=== PATIENT | female | born 1950 | race Caucasian/White ===

== ENCOUNTER 2018-03-29 16:43 | Inpatient (IN) | payer SELFPAY ==
[~2018-03-29] VITALS: Ht 160 cm; Wt 68.9 kg
[2018-03-29] MEDS ORDERED: KETOROLAC 30MG/ML VIAL IV STA (19:28)
[2018-03-29] MEDS ORDERED: FAMOTIDINE 20MG/2ML VIAL IV STA (19:28)
[2018-03-29] MEDS ORDERED: ONDANSETRON HCL 4MG/2ML VIAL IV STA (19:28)
[2018-03-29] MEDS ORDERED: SODIUM CHLORIDE 0.9% 1,000 ML IV ONE (19:28)
[2018-03-29] MEDS ORDERED: MORPHINE SULFATE 4 MG/ML CPJ (NOT FOR IM USE) IV STA (19:28)
[2018-03-29] MEDS ORDERED: PIPERACILLIN/TAZ 3.375G PREMIX 50 ML IV ONE (19:30)
[2018-03-29] MEDS ORDERED: SODIUM CHLORIDE 0.9% 1000ML BAG (SEPSIS BOLUS) IV ONE (19:30)
[2018-03-29] MEDS ORDERED: METRONIDAZOLE 500 MG PREMIX 100 ML IV ONE (19:30)
[2018-03-29 21:22] LABS: BASOPHILS % 0.2 % (0.0-2.0); HEMATOCRIT. 35.4 % (36.0-48.0); MEAN CORPUSCULAR HEMOGLOBIN 28.3 pg (28.0-32.0); MEAN CORPUSCULAR VOLUME 83.4 fL (81.0-99.0); MEAN PLATELET VOLUME 9.3 fl (7.4-10.4); MONOCYTES % 3.2 % (2.0-8.0); NEUTROPHILS % 84.6 % (40.0-76.0); PLATELET 208 x1000/uL (130-400); RED BLOOD CELL COUNT 4.24 mill/uL (4.2-5.4)
[2018-03-29 21:26] LABS: CHLORIDE 102 mEq/L (98-107)
[2018-03-29 21:27] LABS: INR 0.9; PROTHROMBIN TIME 9.5 sec (9.1-11.1)
[2018-03-29 21:30] LABS: ETHANOL BLOOD < 10 mg/dL
[2018-03-29 21:36] LABS: CLARITY URINE CLEAR (CLEAR); COLOR URINE YELLOW (YELLOW); KETONES URINE NEGATIVE (NEGATIVE); LEUKOCYTE ESTERASE URINE 1+ (NEGATIVE); NITRITE URINE POSITIVE (NEGATIVE); OCCULT BLOOD URINE NEGATIVE (NEGATIVE); PROTEIN URINE NEGATIVE (NEGATIVE); SPECIFIC GRAVITY URINE 1.016 (1.005-1.030); UROBILINOGEN URINE 0.2 E.U./dL (0.2-1.0)
[2018-03-29 21:45] LABS: *AMPHETAMINES SCREEN URINE NEGATIVE (NEGATIVE); *BARBITURATES SCREEN URINE NEGATIVE (NEGATIVE)
[2018-03-29 21:46] LABS: *BENZODIAZEPINES SCREEN URINE NEGATIVE (NEGATIVE); *COCAINE SCREEN URINE NEGATIVE (NEGATIVE); CANNABINOID URINE SCREEN NEGATIVE (NEGATIVE); METHADONE URINE SCREEN NEGATIVE (NEGATIVE); OPIATES URINE SCREEN NEGATIVE (NEGATIVE); PHENCYCLIDINE URINE SCREEN NEGATIVE (NEGATIVE)
[2018-03-30] MEDS ORDERED: PIPERACILLIN/TAZ 3.375G PREMIX 50 ML IV SCH (01:41)
[2018-03-30] MEDS ORDERED: SODIUM CHLORIDE 0.9% 1,000 ML IV ONE (01:43)
[2018-03-30] MEDS ORDERED: GLIM4TAB2 MT (04:19)
[2018-03-30] MEDS ORDERED: ASPI-1158 MT (04:19)
[2018-03-30] MEDS ORDERED: HYDR12.54 MT (04:22)
[2018-03-30] MEDS ORDERED: GABA-531 PO (04:22)
[2018-03-30] MEDS ORDERED: LOSA100T14 MT (04:22)
[2018-03-30] MEDS ORDERED: NPH,100V SQ (04:22)
[2018-03-30] MEDS ORDERED: IBUP-2028 MT (04:22)
[2018-03-30] MEDS ORDERED: SIMV40TA5 MT (04:22)
[2018-03-30 04:26] VITALS: BP_SYST 109; BP_SYST 110; BP_DIAS 37; BP_DIAS 68
[2018-03-30 08:00] VITALS: BP 81/44
[2018-03-30] MEDS ORDERED: ONDANSETRON HCL 4MG/2ML VIAL IV PRN (09:15)
[2018-03-30] MEDS ORDERED: MORPHINE SULFATE 4 MG/ML CPJ (NOT FOR IM USE) IV PRN (09:15)
[2018-03-30] MEDS ORDERED: DEXTROSE 50% WATER 50ML SYRINGE IV PRN (09:15)
[2018-03-30] MEDS ORDERED: LEVOFLOXACIN 500MG PREMIX 100 ML IV NR (11:00)
[2018-03-30] MEDS: SODIUM CHLORIDE 0.45% 1,000 ML IV SCH ×2 (11:21→20:10)
[2018-03-30] MEDS: PANTOPRAZOLE SODIUM 40 MG/VIAL IV SCH (11:22)
[2018-03-30] MEDS: BLOOD SUGAR DIAGNOSTIC STRIP TEST SCH ×3 (11:29→20:17)
[2018-03-30] MEDS: INSULIN LISPRO 100 UNITS/ML SUBCUT SCH ×3 (11:46→20:28)
[2018-03-30 12:07] VITALS: BP 105/42
[2018-03-30 16:10] VITALS: BP 110/44
[2018-03-30 20:00] VITALS: BP 128/60
[2018-03-30 23:52] VITALS: BP 115/60
[2018-03-31 04:00] VITALS: BP 129/59
[2018-03-31] MEDS: SODIUM CHLORIDE 0.45% 1,000 ML IV SCH (05:29)
[2018-03-31] MEDS: BLOOD SUGAR DIAGNOSTIC STRIP TEST SCH ×3 (06:11→16:48)
[2018-03-31] MEDS: INSULIN LISPRO 100 UNITS/ML SUBCUT SCH ×3 (06:11→16:49)
[2018-03-31 06:43] LABS: BASOPHILS % 0.5 % (0.0-2.0); EOSINOPHILS % 1.9 % (0.0-5.0); HEMATOCRIT. 30.2 % (36.0-48.0); HEMOGLOBIN. 10.3 g/dL (12.0-16.0); LYMPHOCYTES % 36.6 % (20.0-50.0); MEAN CORPUSCULAR HEMOGLOBIN 28.9 pg (28.0-32.0); MEAN CORPUSCULAR VOLUME 84.4 fL (81.0-99.0); MEAN PLATELET VOLUME 9.4 fl (7.4-10.4); MONOCYTES % 7.4 % (2.0-8.0); NEUTROPHILS % 53.6 % (40.0-76.0); PLATELET 154 x1000/uL (130-400); RED BLOOD CELL COUNT 3.58 mill/uL (4.2-5.4); RED CELL DISTRIBUTION WIDTH 13.9 % (11.6-14.6)
[2018-03-31 08:00] VITALS: BP 147/60
[2018-03-31] MEDS: PANTOPRAZOLE SODIUM 40 MG/VIAL IV SCH (08:21)
[2018-03-31] MEDS ORDERED: LEVOFLOXACIN 250MG PREMIX 50 ML IV SCH (09:00)
[2018-03-31 11:55] VITALS: BP 167/68
[2018-03-31 16:00] VITALS: BP 147/54
[2018-03-31 16:57] VITALS: BP 147/54
[2018-04-01] MEDS ORDERED: FAMOTIDINE 20MG/2ML VIAL IV SCH (09:00)
== END 2018-03-31 17:58 | disposition home or self-care (01) | DRG 720 ==
LOC: ER 17:46 → 8WST 19:55 → OBSVTOIN 19:55 → EDBEDREQ 22:35 → EDBEDREQSVC 22:50 → ENRESERV 23:26
PROVIDERS: ADMIT Internal Medicine; ATTEND Internal Medicine
DX: A41.9 Sepsis, unspecified organism (principal); R65.21 Severe sepsis with septic shock; N17.9 Acute kidney failure, unspecified; I10 Essential (primary) hypertension; N39.0 Urinary tract infection, site not specified; E11.9 Type 2 diabetes mellitus without complications; E78.5 Hyperlipidemia, unspecified; K52.9 Noninfective gastroenteritis and colitis, unspecified; Z98.51 Tubal ligation status; Z79.4 Long term (current) use of insulin; Z79.899 Other long term (current) drug therapy; Z79.82 Long term (current) use of aspirin; Z79.84 Long term (current) use of oral hypoglycemic drugs
CPT/HCPCS: 36415; 71045; 74176; 80048; 80053; 80305; 81003; 82962; 83605; 83690; 83880; 84484; 85025; 85610; 87015; 87040; 87045; 87077; 87086; 87186; 87427; 87449; 89055; 93005; 96361; 96365; 96367; 96375; 99285; C9113; G0482; J1815; J1885; J1956; J2270; J2405; J2543; J3490; J7030; J7040